=== PATIENT | female | born 1980 | race Caucasian/White ===

== ENCOUNTER 2018-05-27 00:13 | Inpatient (IN) | payer MEDICAID, OTHER ==
[~2018-05-27] VITALS: Ht 160 cm; Wt 99.8 kg
[2018-05-27] MEDS ORDERED: DEXAMETHASONE 4 MG TABLET ONE (00:48)
[2018-05-27] MEDS ORDERED: ACETAMINOPHEN 500 MG TABLET ONE (00:48)
[2018-05-27] MEDS ORDERED: IBUPROFEN 200 MG TABLET ONE (00:48)
--- NOTE | 2018-05-27 00:52 | NUR ---
PT MEDICATED PER EMAR AND WALKED TO LAB WITH [facility] FOR STUDY.
[2018-05-27] MEDS ORDERED: DEXAMETHASONE 4 MG TABLET PO ONE (01:00)
[2018-05-27] MEDS ORDERED: PLEASE ENTER ALLERGIES MC SCH (01:00)
[2018-05-27] MEDS ORDERED: ACETAMINOPHEN 500 MG TABLET PO ONE (01:00)
[2018-05-27] MEDS ORDERED: IBUPROFEN 200 MG TABLET PO ONE (01:00)
[2018-05-27 01:04] LABS: RAPID INFLUENZA A Negative (Negative); RAPID INFLUENZA B Negative (Negative)
[2018-05-27 01:16] LABS: MEAN CORPUSCULAR HEMOGLOBIN 31.8 pg (27.0-34.8); MEAN CORPUSCULAR HGB CONC 34.7 g/dL (32.4-35.8); MEAN CORPUSCULAR VOLUME 91.6 fL (80-100); MEAN PLATELET VOLUME 7.5 fL (7.4-10.4); PLATELET COUNT 365 x10^3/uL (130-400); RED BLOOD COUNT 4.33 x10^6/uL (3.82-5.3); RED CELL DISTRIBUTION WIDTH 13.3 % (9.6-15.2)
[2018-05-27 01:17] LABS: MD YES
[2018-05-27 01:24] LABS: ALBUMIN 2.6 g/dL (3.4-5.0); ANION GAP 9 mmol/L (5-15); CALCIUM 8.5 mg/dL (8.5-10.1); CHLORIDE 99 mmol/L (98-107); CREATININE 0.87 mg/dL (0.55-1.02)
[2018-05-27] MEDS ORDERED: CEFTRIAXONE PMX 1GM/50ML 50 ML IV ONE (01:30)
[2018-05-27] MEDS ORDERED: SODIUM CHLORIDE 0.9% 1,000ML IVBOLUS ONE (01:30)
[2018-05-27] MEDS ORDERED: AZITHROMYCIN 500 MG in SODIUM CHLORIDE 0.9% 250 ML IV ONE (01:30)
[2018-05-27 01:37] LABS: <PLATELET ESTIMATE> ADEQUATE; <RBC MORPHOLOGY> NORMAL; BASOS#(MANUAL) 0.26 x10^3/uL (0-0.1); BASOS% (MANUAL) 1 % (0-1); LYMPH#(MANUAL) 2.32 x10^3/uL (1-3.4); LYMPHS% (MANUAL) 9 % (22-44); MONOS#(MANUAL) 1.03 x10^3/uL (0.3-2.7); MONOS% (MANUAL) 4 % (2-9); SEG#(MANUAL) 22.19 x10^3/uL (1.8-6.8); SEGS% (MANUAL) 86 % (42-75)
[2018-05-27 01:38] LABS: <PLT MORPHOLOGY> NORMAL PLT MORPH
[2018-05-27] MEDS ORDERED: CEFTRIAXONE PMX 1GM/50ML 50 ML ONE (02:16)
--- NOTE | 2018-05-27 02:29 | NUR ---
IV ABX IS INFUSING
--- NOTE | 2018-05-27 03:01 | NUR ---
all abx was infused pt is sleeping tmep 98.5 pt is sweating vss stable
--- NOTE | 2018-05-27 03:53 | NUR ---
GIVEN REPORT TO LIBERTY RAMIREZ PT'S VSS STABLE IV FLUIDS WAS DONE
[2018-05-27 05:14] VITALS: BP 124/77
[2018-05-27] MEDS ORDERED: CEFTRIAXONE PMX 2GM/50ML 50 ML IVPB SCH (05:30)
[2018-05-27] MEDS ORDERED: PHARMACY MAY ADJ FOR RENAL FX MC PRN (05:30)
[2018-05-27] MEDS ORDERED: ONDANSETRON 2MG/ML, 2ML IVPB PRN (05:30)
[2018-05-27] MEDS ORDERED: ACETAMINOPHEN 500 MG TABLET PO PRN (05:30)
[2018-05-27] MEDS ORDERED: HYDROcodone/CHLORPHENIR ORAL SUSP PO PRN (05:30)
[2018-05-27] MEDS: D5%-0.9% NACL 1,000 ML IV SCH ×3 (05:31→22:00)
[2018-05-27] MEDS: ENOXAPARIN 40 MG/0.4 ML SQ SCH (05:31)
[2018-05-27 07:26] VITALS: BP 117/80
[2018-05-27] MEDS: GUAIFENESIN ER 600 MG TABLET PO SCH ×2 (08:27→19:24)
[2018-05-27 12:35] VITALS: BP 136/80
[2018-05-27 19:55] VITALS: BP 120/74
[2018-05-28] MEDS: AZITHROMYCIN 500 MG in SODIUM CHLORIDE 0.9% 250 ML IV SCH ×3 (01:30→09:00)
[2018-05-28] MEDS ORDERED: AZITHROMYCIN 500 MG TABLET PO ONE (02:00)
[2018-05-28] MEDS: D5%-0.9% NACL 1,000 ML IV SCH (02:06)
[2018-05-28 04:12] VITALS: BP 120/81
[2018-05-28] MEDS: ENOXAPARIN 40 MG/0.4 ML SQ SCH (05:25)
[2018-05-28] MEDS: GUAIFENESIN ER 600 MG TABLET PO SCH (07:55)
[2018-05-28 10:26] VITALS: BP 115/73
[2018-05-28] MEDS ORDERED: LEVO750T26 PO (11:04)
[2018-05-28] MEDS ORDERED: LEVOFLOXACIN 750 MG TABLET PO ONE (11:30)
[2018-05-28 14:23] VITALS: BP 117/77
== END 2018-05-28 15:25 | disposition home or self-care (01) | DRG 871 ==
LOC: ED 03:26 → EDIP 03:39 → 4NOR 03:55 → DCLOUNGE 05-28 15:15
PROVIDERS: ADMIT Hospitalist; ATTEND Hospitalist
DX: A41.9 Sepsis, unspecified organism (principal); J18.1 Lobar pneumonia, unspecified organism; E87.1 Hypo-osmolality and hyponatremia; F17.200 Nicotine dependence, unspecified, uncomplicated; Z71.6 Tobacco abuse counseling
CPT/HCPCS: 36415; 84145; 87400; 99285; J7042; 71046; 80048; 82040; 83605; 85025; 87040; 87081; 87880; 93005; 96365; 96368; G0378; J0456; J0696; J1650; J7030; J7050